=== PATIENT | female | born 1980 | race Caucasian/White ===

== ENCOUNTER 2017-06-19 17:31 | Emergency (ER) | payer MEDICAID ==
[~2017-06-19] VITALS: Ht 167.6 cm; Wt 79.4 kg
[~2017-06-19 17:31] MED LIST: ALPR1TAB; AMOX-358 PO; CHLR25C PO; CODE-54 PO; DOXY-13 PO; ESCI5TAB PO; FLUT9.9S NS; FRS325T PO; HYDR-3816 PO; IBP600T1 PO; LAMO25TA4 PO; LORA0.5T PO; LORA1TAB PO; METH4TAB PO; NAPR-243 PO; OLAN10TA3 PO; OLAN15TA3 PO; PREN1TAB14 PO; PREN1TAB39 PO; SULF1TAB35 PO; TRAM50TA2 PO; Tylenol #3 PO
--- OUTSIDE RECORDS SUMMARY | 2017-06-19 17:38 | XMS REPORT | Continuity of Care Document ---
Author Author [facility] Address Unknown Phone Unavailable Allergies Active Description Code Type Severity Reaction Onset Reported/Identified Relationship to Patient Clinical Status Yes NKDA NKDA Mild N/A 09/06/2009 Medications Problems Date Dx Coded Attending Type Code Diagnosis Diagnosed By 02/17/2009 300.00 AN ANXIETY UNSPEC 02/17/2009 307.47 SI DYSSOMNIA NOS 02/17/2009 311 MO DEPRESS NOS 02/17/2009 [facility] 300.00 AN ANXIETY UNSPEC 02/17/2009 [facility] 307.47 SI DYSSOMNIA NOS 02/17/2009 [facility] 311 MO DEPRESS NOS 05/01/2009 296.90 UNSPECIFIED EPISODIC MOOD DISORDER 05/01/2009 V58.69 MEDICATION HIGH RISK 05/01/2009 [facility] 296.90 UNSPECIFIED EPISODIC MOOD DISORDER 05/01/2009 [facility] V58.69 MEDICATION HIGH RISK 09/04/2009 301.9 PD PERS DIS NOS 09/04/2009 [facility] 301.9 PD PERS DIS NOS 11/21/2009 296.30 MO DEPRESSIVE RECURRENT UNSPECIFIED 11/21/2009 [facility] 296.30 MO DEPRESSIVE RECURRENT UNSPECIFIED 01/19/2010 296.80 MO BIPOLAR NOS 01/19/2010 [facility] 296.80 MO BIPOLAR NOS 09/04/2010 Ot 300.00 09/04/2010 Ot V58.69 12/27/2010 Ot 681.10 12/27/2010 Ot 703.0 12/27/2010 Ot 729.5 04/19/2011 300.02 AN GEN ANXIETY 04/19/2011 799.22 IRRITIBILITY 04/19/2011 V22.2 Incidental 04/19/2011 [facility] 300.02 AN GEN ANXIETY 04/19/2011 [facility] 799.22 IRRITIBILITY 04/19/2011 [facility] V22.2 Incidental 08/30/2011 Ot 644.13 09/05/2011 Ot 296.80 09/05/2011 Ot 300.00 09/05/2011 Ot 642.41 09/05/2011 Ot 648.41 09/05/2011 Ot 648.91 09/05/2011 Ot 649.01 09/05/2011 Ot V02.51 09/05/2011 Ot V27.0 04/15/2012 Ot 300.00 04/15/2012 Ot 346.90 04/15/2012 Ot 784.0 09/14/2012 Ot 296.80 09/14/2012 Ot 963.0 09/14/2012 Ot 969.3 09/14/2012 Ot E849.0 09/14/2012 Ot E853.8 09/14/2012 Ot E858.1 06/30/2013 ARCENIO RAMESH ASHLEY Sweet Ot 789.03 03/22/2015 JCARLOS BAILEY, MAUREEN Mcadams Ot 873.63 03/22/2015 JCARLOS BAILEY, MAUREEN Mcadams Ot 920 03/22/2015 JCARLOS BAILEY, MAUREEN Mcadams Ot 959.01 03/22/2015 JCARLOS BAILEY, MAUREEN Mcadams Ot E000.8 03/22/2015 JCARLOS BAILEY, MAUREEN Mcadams Ot E968.9 10/06/2015 STEPHY BAILEY, LANRE Montoya Ot F17.210 10/06/2015 STEPHY BAILEY, LANRE T Ot S01.411A 10/06/2015 STEPHY BAILEY, LANRE T Ot W10.9XXA 10/06/2015 STEPHY BAILEY, LANRE T Ot Y99.8 10/06/2015 STEPHY BAILEY, LANRE Montoya Ot Z23 02/19/2016 ESAU LOWE APRN Ot F15.20 OTHER STIMULANT DEPENDENCE, UNCOMPLICATE 02/19/2016 ESAU LOWE APRN Ot R11.0 NAUSEA 02/19/2016 ESAU LOWE APRN Ot R42 DIZZINESS AND GIDDINESS 02/21/2016 ESAU LOWE APRN Ot F15.20 OTHER STIMULANT DEPENDENCE, UNCOMPLICATE 02/21/2016 LOWE, PETER J BRADLEY [employer]ER CREWMEMBER Ot R11.0 NAUSEA 02/21/2016 ESAU LOWE BRADLEY [employer]WMEMBER Ot R42 DIZZINESS AND GIDDINESS 2016 ASHLEY RG DO Ot F17.210 NICOTINE DEPENDENCE, CIGARETTES, UNCOMPL 2016 ARCENIO ASHLEY RAMESH Ot H61.23 IMPACTED CERUMEN, BILATERAL 2016 ARCENIO ASHLEY RAMESH Ot H92.01 OTALGIA, RIGHT EAR 2016 ARCENIO ASHLEY RAMESH Ot J01.90 ACUTE SINUSITIS, UNSPECIFIED 10/29/2016 ASHLEY RG DO Ot F17.210 NICOTINE DEPENDENCE, CIGARETTES, UNCOMPL 10/29/2016 ARCENIO ASHLEY RAMESH Ot H61.23 IMPACTED CERUMEN, BILATERAL 10/29/2016 ARCENIO , ASHLEY Sweet Ot H92.01 OTALGIA, RIGHT EAR 10/29/2016 ARCENIO ASHLEY RAMESH Ot J01.90 ACUTE SINUSITIS, UNSPECIFIED Procedures Code [place] [address] PSYCH DIAGNOSTIC EVALUATION 04/20/2014 Results Encounters ACCT No. Visit Date/Time Discharge Status Pt. Type Provider Facility Loc./Unit Complaint [id number] 04/20/2014 13:52:00 04/20/2014 23: 59:59 [facility] Outpatient [facility] LEONG [facility] [id number] 05/01/2012 10:49:00 05/01/2012 23:59 :59 [facility] Outpatient [id number] 2016 22:14:00 2015 22:47:00 DIS Emergency ARCENIO RAMESH ASHLEY K [facility] ER FEVER/R EAR PAIN [id number] 02/19/2016 21:34:00 2015 22:57:00 DIS Emergency ESAU LOWE APRN [facility] ER [id number] 10/06/2015 00:03:00 2014 03:45:00 DIS Emergency LANRE KEYES MD [facility] ER [id number] 03/22/2015 10:50:00 2014 13:10:00 DIS Emergency MAUREEN GARBER MD [facility] ER [id number] 06/30/2013 18:55:00 2012 19:44:00 DIS Emergency ARCENIO ASHLEY Sweet [facility] [id number] 09/13/2012 23:07:00 Document Registration [id number] 04/15/2012 08:45:00 Document Registration [id number] 09/03/2011 17:53:00 Document Registration [id number] 08/30/2011 15:35:00 Document Registration [id number] 12/27/2010 13:03:00 Document Registration [id number] 09/04/2010 14:53:00 Document Registration
--- NOTE | 2017-06-19 17:58 | ED General ---
General Chief Complaint: Psych/Social Disorder Stated Complaint: PSYCH EVAL Source of Information: Patient Exam Limitations: No Limitations History of Present Illness Time Seen by Provider: 17:57 Initial Comments To ER with severe anxiety for the past 2 months. She ran out of her psychiatric medications one month ago because she couldn't afford them. Currently she is homeless living in a tent. She arrives with her service dog. She states she feels very anxious today. She denies any suicidal or homicidal thoughts. She states she is having a panic attack and cannot take it. Timing/Duration: 1-2 Days Severity: Moderate Associated Systoms: Denies Symptoms Allergies and Home Medications Allergies Uncoded Allergies: NKDA (Allergy, Mild, 09/06/09) Home Medications Amoxicillin/Potassium Clav 1 Each Tablet, 1 EACH PO BID, #20 Prescribed by: ASHLEY RG on 10/25/164 Escitalopram Oxalate 5 Mg Tablet, 5 MG PO HS, (Reported) Fluticasone Propionate 9.9 Ml [place].susp, 2 SPRAYS NS BID, #1 Prescribed by: ASHLEY RG on 10/25/16 2234 Hydroxyzine HCl 25 Mg Tablet, 25 MG PO Q8H PRN for ANXIETY, #14 Prescribed by: ESAU LOWE on 06/19/17 1934 Methylprednisolone 4 Mg Tab.ds.pk, 4 MG PO UD, #1 Prescribed by: ASHLEY RG on 10/25/16 223 Olanzapine 10 Mg Tablet, 10 MG PO BID, (Reported) Sulfamethoxazole/Trimethoprim 1 Each Tablet, 1 EACH PO BID, #10 Prescribed by: ESAU LOWE on 02/19/169 Sulfamethoxazole/Trimethoprim 1 Each Tablet, 1 EACH PO BID, #10 Prescribed by: ESAU LOWE on 06/19/174 Constitutional: see HPI EENTM: see HPI Respiratory: no symptoms reported Cardiovascular: no symptoms reported Musculoskeletal: no symptoms reported Psychiatric/Neurological: See HPI, Anxiety Hematologic/Lymphatic: No Symptoms Reported Past Kgofwhb-Cikeos-Xfhuab Hx Patient Social History Type Used: Cigarettes Recent Foreign Travel: No Contact w/Someone Who Travel: No Recent Hopitalizations: No (02 childbirth) Seasonal Allergies Seasonal Allergies: No Surgeries HX Surgeries: No Respiratory Hx Respiratory Disorders: No Cardiovascular Hx Cardiac Disorders: No Neurological Hx Neurological Disorders: Yes Neurological Disorders: Headaches /Migraines Reproductive System Hx Reproductive Disorders: No Female Reproductive Disorders: Denies Genitourinary Hx Genitourinary Disorders: No Gastrointestinal Hx Gastrointestinal Disorders: No Musculoskeletal Hx Musculoskeletal Disorders: No Endocrine Hx Endocrine Disorders: No HEENT HX ENT Disorders: No Cancer Hx Cancer: No Psychosocial Hx Psychiatric Problems: Yes Behavioral Health Disorders: Anxiety, PTSD, Bipolar, Depression Integumentary HX Skin/Integumentary Disorder: No Blood Transfusions Hx Blood Disorders: No Family Medical History Significant Family History: No Pertinent Family Hx Physical Exam Vital Signs Vital Sign - Last 12Hours 06/19/17 17:53 Temp 97.8 Pulse 99 Resp 20 B/P (MAP) 147/79 Pulse Ox 99 Capillary Refill : General Appearance: No Apparent Distress, WD/WN Eyes: Bilateral Eye Normal Inspection, Bilateral Eye PERRL, Bilateral Eye EOMI HEENT: PERRL/EOMI, TMs Normal Neck: Full Range of Motion, Normal Inspection Respiratory: Normal Breath Sounds, No Accessory Muscle Use, No Respiratory Distress Gastrointestinal: Normal Bowel Sounds, Non Tender, Soft Extremity: Normal Capillary Refill, Normal Inspection Neurologic/Psychiatric: Alert, Oriented x3 Skin: Normal Color, Warm/Dry Laceration Repair : Suture Size: 4-0 Progress/Results/Core Measures Results/Orders Lab Results Laboratory Tests Test 06/19/17 18:27 06/19/17 18:56 Range/Units White Blood Count 12.7 H 4.3-11.0 10^3/uL Red Blood Count 4.54 4.35-5.85 10^6/uL Hemoglobin 14.4 11.5-16.0 G/DL Hematocrit 41 35-52 % Mean Corpuscular Volume 91 80-99 FL Mean Corpuscular Hemoglobin 32 25-34 PG Mean Corpuscular Hemoglobin Concent 35 32-36 G/DL Red Cell Distribution Width 13.4 10.0-14.5 % Platelet Count 371 130-400 10^3/uL Mean Platelet Volume 11.2 H 7.4-10.4 FL Neutrophils (%) (Auto) 63 42-75 % Lymphocytes (%) (Auto) 30 12-44 % Monocytes (%) (Auto) 5 0-12 % Eosinophils (%) (Auto) 1 0-10 % Basophils (%) (Auto) 1 0-10 % Neutrophils # (Auto) 8.0 H 1.8-7.8 X 10^3 Lymphocytes # (Auto) 3.8 1.0-4.0 X 10^3 Monocytes # (Auto) 0.6 0.0-1.0 X 10^3 Eosinophils # (Auto) 0.1 0.0-0.3 10^3/uL Basophils # (Auto) 0.1 0.0-0.1 10^3/uL Sodium Level 139 135-145 MMOL/L Potassium Level 4.1 3.6-5.0 MMOL/L Chloride Level 106 98-107 MMOL/L Carbon Dioxide Level 22 21-32 MMOL/L Anion Gap 11 5-14 MMOL/L Blood Urea Nitrogen 13 7-18 MG/DL Creatinine 0.80 0.60-1.30 MG/DL Estimat Glomerular Filtration Rate > 60 BUN/Creatinine Ratio 16 Glucose Level 95 70-105 MG/DL Calcium Level 9.5 8.5-10.1 MG/DL Total Bilirubin 0.5 0.1-1.0 MG/DL Aspartate Amino Transf (AST/SGOT) 26 5-34 U/L Alanine Aminotransferase (ALT/SGPT) 22 0-55 U/L Alkaline Phosphatase 76 40-136 U/L Total Protein 7.6 6.4-8.2 GM/DL Albumin 4.6 H 3.2-4.5 GM/DL Thyroid Stimulating Hormone (TSH) 3.67 0.35-4.94 UIU/ML Urine Color YELLOW Urine Clarity SLIGHTLY CLOUDY Urine pH 5 5-9 Urine Specific [place] 1.025 H 1.016-1.022 Urine Protein 2+ H NEGATIVE Urine Glucose (UA) NEGATIVE NEGATIVE Urine Ketones NEGATIVE NEGATIVE Urine Nitrite NEGATIVE NEGATIVE Urine Bilirubin NEGATIVE NEGATIVE Urine Urobilinogen 1 NORMAL MG/DL Urine Leukocyte Esterase 3+ H NEGATIVE Urine RBC (Auto) 2+ H NEGATIVE Urine RBC 0-2 /HPF Urine WBC 10-25 H /HPF Urine Squamous Epithelial Cells 25-50 H /HPF Urine Crystals NONE /LPF Urine Bacteria LARGE H /HPF Urine Casts NONE /LPF Urine Mucus SMALL H /LPF Urine Culture Indicated YES Urine Opiates Screen NEGATIVE NEGATIVE Urine Oxycodone Screen NEGATIVE NEGATIVE Urine Methadone Screen NEGATIVE NEGATIVE Urine Propoxyphene Screen NEGATIVE NEGATIVE Urine Barbiturates Screen NEGATIVE NEGATIVE Ur Tricyclic Antidepressants Screen NEGATIVE NEGATIVE Urine Phencyclidine Screen NEGATIVE NEGATIVE Urine Amphetamines Screen POSITIVE H NEGATIVE Urine Methamphetamines Screen POSITIVE H NEGATIVE Urine Benzodiazepines Screen POSITIVE H NEGATIVE Urine Cocaine Screen NEGATIVE NEGATIVE Urine Cannabinoids Screen POSITIVE H NEGATIVE My Orders Orders - ESAU LOWE [employer] Cbc With Automated Diff (06/19/17 17:56) Thyroid Stimulating Hormone (06/19/17 17:56) Comprehensive Metabolic Panel (06/19/17 17:56) Olanzapine Orally Dissolve Tab (Zyprexa (06/19/17 18:00) Ua Culture If Indicated (06/19/17 18:04) Drug Screen Stat (Urine) (06/19/17 18:04) Urine Culture (06/19/17 18:56) Medications Given in ED Current Medications Medications Dose Ordered Sig/Isai Route Start Time Stop Time Status Last Admin Dose Admin Olanzapine 5 mg ONCE ONCE PO 06/19/17 18:00 06/19/17 18:02 DC 06/19/17 18:07 5 MG Vital Signs/I&O Vital Sign - Last 12Hours 06/19/17 17:53 Temp 97.8 Pulse 99 Resp 20 B/P (MAP) 147/79 Pulse Ox 99 Departure Communication Progress Notes 1931-Patient is much calmer at this time, no longer hyperventilating or crying. Impression Impression: Primary Impression: Anxiety Additional Impressions: Urinary tract infection Methamphetamine abuse Disposition: 01 HOME, SELF-CARE Condition: Stable Departure-Patient Inst. Decision time for Depature: 19:32 Referrals: [facility] (PCP/Family) Primary Care Physician Patient Instructions: NO INSTRUCTIONS GIVEN Add. Discharge Instructions: 1. Return to ER for any concerns 2. Anabolic as directed 3. See her doctor next week All discharge instructions reviewed with patient and/or family. Voiced understanding. Scripts Sulfamethoxazole/Trimethoprim (Bactrim Ds Tablet) 1 Each Tablet 1 EACH PO BID, #10 TAB Prov: ESAU LOWE [employer] 06/19/17 ESAU LOWE [employer] Jun 19, 2017 17:58
[2017-06-19] MEDS ORDERED: OLANZapine 5 MG ODT (ZyPREXA ZYDIS) PO ONE (18:00)
[2017-06-19 18:42] LABS: BASOPHILS # (AUTO) 0.1 10^3/uL (0.0-0.1); BASOPHILS % (AUTO) 1 % (0-10); EOSINOPHILS # (AUTO) 0.1 10^3/uL (0.0-0.3); EOSINOPHILS % (AUTO) 1 % (0-10); LYMPHOCYTES # (AUTO) 3.8 X 10^3 (1.0-4.0); LYMPHOCYTES % (AUTO) 30 % (12-44); MEAN CORPUSCULAR HEMOGLOBIN 32 PG (25-34); MEAN CORPUSCULAR HGB CONC 35 G/DL (32-36); MEAN CORPUSCULAR VOLUME 91 FL (80-99); MEAN PLATELET VOLUME 11.2 FL (7.4-10.4); MONOCYTES # (AUTO) 0.6 X 10^3 (0.0-1.0); MONOCYTES % (AUTO) 5 % (0-12); NEUTROPHILS % (AUTO) 63 % (42-75); PLATELET COUNT 371 10^3/uL (130-400); RED BLOOD COUNT 4.54 10^6/uL (4.35-5.85); RED CELL DISTRIBUTION WIDTH 13.4 % (10.0-14.5); WHITE BLOOD COUNT 12.7 10^3/uL (4.3-11.0)
[2017-06-19 18:58] LABS: ALANINE AMINOTRANSFERASE 22 U/L (0-55); ALBUMIN 4.6 GM/DL (3.2-4.5); ANION GAP 11 MMOL/L (5-14); ASPARTATE AMINO TRANSFERASE 26 U/L (5-34); BILIRUBIN,TOTAL 0.5 MG/DL (0.1-1.0); BLOOD UREA NITROGEN 13 MG/DL (7-18); BUN/CREATININE RATIO 16; CALCIUM 9.5 MG/DL (8.5-10.1); CARBON DIOXIDE 22 MMOL/L (21-32); CHLORIDE 106 MMOL/L (98-107); GFR ESTIMATED > 60; GLUCOSE 95 MG/DL (70-105); POTASSIUM 4.1 MMOL/L (3.6-5.0); SODIUM 139 MMOL/L (135-145); TOTAL PROTEIN 7.6 GM/DL (6.4-8.2)
[2017-06-19 19:14] LABS: BILIRUBIN,URINE NEGATIVE (NEGATIVE); KETONES,URINE NEGATIVE (NEGATIVE); LEUKOCYTE ESTERASE ,URINE 3+ (NEGATIVE); NITRITE,URINE NEGATIVE (NEGATIVE); PH,URINE 5 (5-9); PROTEIN,URINE 2+ (NEGATIVE); UROBILINOGEN,URINE 1 MG/DL (NORMAL)
[2017-06-19 19:17] LABS: THYROID STIMULATING HORMONE 3.67 UIU/ML (0.35-4.94)
[2017-06-19 19:28] LABS: SQUAMOUS EPITHELIAL CELL,UR 25-50 /HPF
[2017-06-19] MEDS ORDERED: SULF1TAB35 PO (19:34)
[2017-06-19] MEDS ORDERED: HYDR-700 PO (19:34)
[2017-06-19 19:43] VITALS: BP 147/79
== END 2017-06-19 19:43 | disposition home or self-care (01) ==
LOC: EDUNIT# 17:31 → ER 17:33
DX: F41.9 Anxiety disorder, unspecified (principal); N39.0 Urinary tract infection, site not specified; F15.10 Other stimulant abuse, uncomplicated; F43.10 Post-traumatic stress disorder, unspecified; F31.9 Bipolar disorder, unspecified; G43.909 Migraine, unspecified, not intractable, without status migrainosus
CPT/HCPCS: 36415; 80053; 80306; 81000; 84443; 85025; 87088; 99283

== ENCOUNTER 2017-07-10 18:13 | Emergency (ER) | payer MEDICAID ==
[~2017-07-10 18:13] MED LIST changes: +HYDR-700 PO
[2017-07-10 18:51] VITALS: BP 0/0
== END 2017-07-10 18:51 | disposition left against medical advice (07) ==
LOC: EDUNIT# 18:13 → ER 18:14
DX: G43.909 Migraine, unspecified, not intractable, without status migrainosus (principal)
CPT/HCPCS: 99281

== ENCOUNTER 2019-01-23 15:54 | Emergency (ER) | payer MEDICAID ==
[~2019-01-23] VITALS: Ht 165.1 cm; Wt 89.8 kg
--- OUTSIDE RECORDS SUMMARY | 2019-01-23 16:00 | XMS REPORT ---
Author Author MING SANDERS Organization [facility] Address [address] [place] [address] Care Team Providers Care Forgeman Helper Name Role Phone MING SANDERS Unavailable PROBLEMS Type Condition ICD9-CM Code [id number] Code Onset Dates Condition Status SNOMED Code Problem Depressive disorder, not elsewhere classified F32.9 Active [id number] Problem Anxiety state, unspecified F41.1 Active [id number] ALLERGIES No Information ENCOUNTERS Encounter Location Date Diagnosis [facility] [id number] [place] [address] Sep, [facility] [address] [address] Sep, Anxiety state, unspecified F41.1 and Depressive disorder, not elsewhere classified F32.9 [facility] [address] [id number] Aug, Dental examination Z01.20 and Caries K02.9 [facility] [address] [id number] Apr, Dental examination V72.2 [facility] [id number] [place] [address] Feb, [facility] [id number] [place] [address] Feb, [facility] [address] [address] May, [facility] [id number] [place] [address] May, [facility] [address] [address] Apr, [facility] [address] [id number] [place] [address] Apr, [facility] [place] [facility] [address] [id number] [place] [address] Sep, [facility] [place] [facility] [address] [id number] [place] [address] Sep, [facility] [place] [facility] [address] [id number] [place] [address] Jun, [facility] [place] [facility] [address] [id number] [place] [address] Jun, [facility] [place] [facility] [address] [id number] [place] [address] May, [facility] [place] [facility] [address] [id number] [place] [address] Apr, [facility] [place] [facility] [address] [id number] [place] [address] Apr, [facility] [place] [facility] [address] [id number] [place] [address] Apr, [facility] [place] [facility] [address] [id number] [place] [address] March, [facility] [place] [facility] [address] [id number] [place] [address] Feb, [facility] [place] [facility] [address] [id number] [place] [address] Feb, [facility] [place] [facility] [address] [id number] [place] [address] Feb, [facility] [place] [facility] [address] [id number] [place] [address] Nov, [facility] [place] [facility] [address] [id number] [place] [address] Nov, [facility] [place] [facility] [address] [id number] [place] [address] 29 Oct, 2011 [facility] [place] [facility] [address] [id number] [place] [address] 22 Oct, 2011 [facility] [place] [facility] [address] [id number] [place] [address] 30 Sep, 2011 [facility] [place] [facility] [address] [id number] [place] [address] 28 Sep, 2011 [facility] [place] [facility] [address] [id number] [place] [address] Sep, [facility] [place] [facility] [address] [id number] [place] [address] 15 Sep, 2011 [facility] [place] [facility] [address] [id number] [place] [address] 15 Sep, 2011 [facility] [place] [facility] [address] [id number] [place] [address] Sep, [facility] [place] [facility] [address] [id number] [place] [address] 27 Aug, 2011 [facility] [place] [facility] [address] [id number] [place] [address] Aug, [facility] [place] [facility] [address] [id number] [place] [address] 16 Jun, 2011 [facility] [place] [facility] [address] [id number], [place] [address] May, [facility] [place] [facility] [address] [id number], [place] [address] 20 Apr, 2011 [facility] [place] [facility] [address] [id number] [place] [address] 17 Apr, 2011 [facility] [place] [facility] [address] [id number] [place] [address] 29 Oct, 2010 [facility] [place] [facility] [address] [id number] [place] [address] 13 Oct, 2010 [facility] [place] [facility] [address] [facility] [id number] [place] [address] Sep, [facility] [address] [facility] [id number], [place] [address] Sep, [facility] [address] [facility] [id number], [place] [address] Sep, [facility] [address] [facility] [id number], [place] [address] Sep, IMMUNIZATIONS No Known Immunizations SOCIAL HISTORY Never Assessed REASON FOR VISIT intake PLAN OF CARE VITAL SIGNS MEDICATIONS Unknown Medications RESULTS No Results PROCEDURES Procedure Date Ordered Result Body Site Psych diagnostic evaluation, established patient Sep 03, 2018 INSTRUCTIONS MEDICATIONS ADMINISTERED No Known Medications MEDICAL (GENERAL) HISTORY Type Description Date Surgical History No Surgical history information
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
--- NOTE | 2019-01-23 16:26 | ED General ---
General Chief Complaint: Dizziness/Syncope Stated Complaint: TOOK NEW RX/DIZZY/WEAKNESS Nursing Triage Note: PATIENT AMBULATORY TO ER WITH COMPLAINT OF FEELING DIZZY AFTER TAKING LARGER DOSE OF HYDROXYZINE 25 MG AND PROPRANOLOL 10 MG THAT WAS PRESCRIBED BY [facility]. PATIENT STATES SHE WAS PRESCRIBED THESE MEDICATIONS ON 01/12/19 FOR ANXIETY, STRESS AND SLEEPLESSNESS. PATIENT WAS TOLD TO INCREASE THE DOSE AND TODAY TOOK THE FIRST DOSE OF HYDROXYZINE 25 MG THREE TABLETS ALL AT ONCE 1 HOUR AGO ALONG WITH PROPRONOLOL 10 MG X 2 TABLETS. SHE BEGAN HAVING THE DIZZINESS ALONG WITH NAUSEA, FEELING LIKE SHE CAN'T KEEP HER EYES OPEN, AND SWEATING. PATIENT IS AWAKE AND ALERT AND ABLE TO ANSWER ALL QUESTIONS APPROPRIATELY. Nursing Sepsis Screen: No Definite Risk Source of Information: Patient Exam Limitations: No Limitations History of Present Illness Date Seen by Provider: Jan 23, 2019 Time Seen by Provider: 16:12 Initial Comments Here with report of feeling dizzy and not well after she was started on prescription for propranolol. The doses 10 mg daily as well as hydroxyzine 25 mg up to 3 pills 3 times daily. She took 2 propranolol this morning and 3 hydroxyzine and was very dizzy and was concerned that she is having a medication reaction. She states that since she started the propranolol several days ago she's had this problem ever time. Denies problems with eating or drinking. Denies problems with going to the bathroom. Denies fever. She is under a lot of stress which she is being treated with these meds for. Timing/Duration: 4-5 Days, Getting Worse Severity: Moderate Associated Systoms: No Fever/Chills, No Nausea/Vomiting, No Shortness of Air, No Weakness; Other (dizziness) Allergies and Home Medications Allergies Uncoded Allergies: NKDA (Allergy, Mild, 09/06/09) Home Medications Amoxicillin/Potassium Clav 1 Each Tablet, 1 EACH PO BID Prescribed by: ASHLEY RG on 10/25/162233 Escitalopram Oxalate 5 Mg Tablet, 5 MG PO HS, (Reported) Fluticasone Propionate 9.9 Ml [place].susp, 2 SPRAYS NS BID Prescribed by: ASHLEY RG on 10/25/162233 Methylprednisolone 4 Mg Tab.ds.pk, 4 MG PO UD Prescribed by: ASHLEY RG on 10/25/162233 Olanzapine 10 Mg Tablet, 10 MG PO BID, (Reported) Sulfamethoxazole/Trimethoprim 1 Each Tablet, 1 EACH PO BID Prescribed by: ESAU LOWE on 02/19/169 Sulfamethoxazole/Trimethoprim 1 Each Tablet, 1 EACH PO BID Prescribed by: ESAU LOWE on 06/19/17 1934 Patient Home Medication List Home Medication List Reviewed: Yes Review of Systems Review of Systems Constitutional: see HPI; No chills, No fever Cardiovascular: no symptoms reported Gastrointestinal: No nausea, No vomiting Genitourinary: no symptoms reported Musculoskeletal: no symptoms reported Psychiatric/Neurological: See HPI, Anxiety, Emotional Problems Past Hqrclbs-Qbqzon-Vffcpo Hx Past Med/Social Hx: Reviewed Nursing Past Med/Soc Hx Patient Social History Alcohol Use: Denies Use Recreational Drug Use: No Smoking Status: Current Everyday Smoker Type Used: Cigarettes 2nd Hand Smoke Exposure: Yes Recent Foreign Travel: No Contact w/Someone Who Travel: No Recent Infectious Disease Expo: No Recent Hopitalizations: No Physical Abuse: No Sexual Abuse: No Mistreated: No Immunizations Up To Date PED Vaccines UTD: Yes Seasonal Allergies Seasonal Allergies: No Past Medical History Surgeries: No Respiratory: No Cardiac: No Neurological: Yes Headaches /Migraines Reproductive Disorders: No Female Reproductive Disorders: Denies Gastrointestinal: No Musculoskeletal: No Endocrine: No Cancer: No Psychosocial: Yes Sleep Difficulties, Anxiety, PTSD, Bipolar, Depression Integumentary: No Blood Disorders: No Family Medical History Reviewed Nursing Family Hx No Pertinent Family Hx Physical Exam Vital Signs Vital Signs - First Documented 01/23/19 15:56 Temp 96.6 Pulse 86 Resp 14 B/P (MAP) 108/74 (85) O2 Delivery Room Air Capillary Refill : Less Than 3 Seconds Height, Weight, BMI Height: 5'5.00" Weight: 198lbs. 9.6oz. 89.070495kh; 27.44 BMI Method:Stated General Appearance: WD/WN, Anxious HEENT: PERRL/EOMI Neck: Full Range of Motion, Non Tender, Supple Respiratory: Lungs Clear, Normal Breath Sounds Cardiovascular: Regular Rate, Rhythm, No Murmur Gastrointestinal: Non Tender, Soft Extremity: Normal Range of Motion, Non Tender Neurologic/Psychiatric: Alert, Oriented x3 Skin: Normal Color, Warm/Dry Procedures/Interventions Suture Size: 4-0 Progress/Results/Core Measures Suspected Sepsis Recent Fever Within 48 Hours: No Infection Criteria Present: None New/Unexplained Altered Menta: No Sepsis Screen: No Definite Risk SIRS Temperature:96.6 Pulse: 86 Respiratory Rate: 14 Blood Pressure 108 /74 Mean: 85 Results/Orders Vital Signs/I&O 01/23/19 15:56 Temp 96.6 Pulse 86 Resp 14 B/P (MAP) 108/74 (85) O2 Delivery Room Air Capillary Refill : Less Than 3 Seconds Blood Pressure Mean: 85 Progress Note : Progress Note Seen and evaluated. We did discuss her medications. At this point, she seems to be not doing well the propranolol and she was instructed to stop that. She will call her doctor Friday morning for further instructions. 3 of the hydroxyzine and at times seems high as well and this was discussed with the patient. She will try just doing to those and see if the dizziness is better. She declined UA or further workup at this time. She is instructed to return tomorrow if not improved. Also instructed to return earlier as needed. Discharged home with return precautions. Patient verbalize understanding instructions and agreement with plan. Departure Impression Primary Impression: Medication reaction Qualified Codes: T50.905A - Adverse effect of unspecified drugs, medicaments and biological substances, initial encounter Additional Impression: Anxiety Disposition: HOME, SELF-CARE Condition: Stable Departure-Patient Inst. Decision time for Depature: 16:28 Referrals: MAGALIE MAKI DO (PCP) Primary Care Physician LORENZO PULIDO APRN (Family) Primary Care Physician Patient Instructions: Anxiety, Adult (DC), Dizziness, Nonvertigo, (DC) Add. Discharge Instructions: All discharge instructions reviewed with patient and/or family. Voiced understanding. Stop taking the propranolol. Drink plenty of fluids. You may consider decreasing your hydroxyzine to 2 tablets as needed instead of 3 as this can increase her risk for dizziness as well. Follow-up with your doctor on Friday for recheck and further evaluation. Return tomorrow if not improved and earlier if needed. Return for worse pain, fever, vomiting, weakness, breathing problems or other concerns as needed. Copy Copies To 1: JAD SIEGEL TIMOTHY D MD Jan 23, 2019 16:26
[2019-01-23 16:47] VITALS: BP 103/72
== END 2019-01-23 16:47 | disposition home or self-care (01) ==
LOC: EDUNIT# 15:54 → ER 15:55
DX: F41.9 Anxiety disorder, unspecified (principal); T50.905A Adverse effect of unspecified drugs, medicaments and biological substances, initial encounter; G43.909 Migraine, unspecified, not intractable, without status migrainosus; F43.10 Post-traumatic stress disorder, unspecified; F31.9 Bipolar disorder, unspecified; F17.210 Nicotine dependence, cigarettes, uncomplicated; Z79.51 Long term (current) use of inhaled steroids
CPT/HCPCS: 99281

== ENCOUNTER 2020-07-01 16:08 | Emergency (ER) | payer MEDICAID ==
[~2020-07-01] VITALS: Ht 165.1 cm; Wt 72.5 kg
[2020-07-01 16:20] VITALS: BP 138/78
== END 2020-07-01 17:26 | disposition left against medical advice (07) ==
LOC: EDUNIT# 16:08 → ER 16:09
DX: S99.911A Unspecified injury of right ankle, initial encounter (principal); W01.0XXA Fall on same level from slipping, tripping and stumbling without subsequent striking against object, initial encounter
CPT/HCPCS: 99282